=== PATIENT | female | born 1980 | race African-American/Black ===

== ENCOUNTER 2021-03-25 08:32 | Outpatient (CLI) | payer BC | END 2021-03-25 08:33 | disposition home or self-care (01) | LOC: LABBT 08:32 | PROVIDERS: ATTEND Neurological Surgery | DX: Z01.810 Encounter for preprocedural cardiovascular examination (principal); M54.12 Radiculopathy, cervical region | CPT/HCPCS: 93005; 93010 ==

== ENCOUNTER 2021-03-30 05:38 | Day surgery (SDC) | payer BC ==
[2021-03-29 10:24] VITALS: BMI 34.5
[2021-03-30] MEDS ORDERED: Thrombin 5000 UNITS/5 ML VIAL ONE (06:09)
[2021-03-30] MEDS ORDERED: Fentanyl 250 MCG/5 ML VIAL ONE (06:31)
[2021-03-30] MEDS ORDERED: Midazolam HCl 2 mg/2 ml Vial ONE (06:52)
[2021-03-30] MEDS ORDERED: PROPOFOL 200 MG/20 ML VIAL ONE (07:02)
[2021-03-30] MEDS ORDERED: Dexamethasone 20 MG/5 ML VIAL ONE (07:02)
[2021-03-30] MEDS ORDERED: Glycopyrrolate 0.2 MG/ML 5 ML SYRINGE ONE (07:02)
[2021-03-30] MEDS ORDERED: Lidocaine 1% PF 5 ML VIAL ONE (07:02)
[2021-03-30] MEDS ORDERED: Ondansetron PF 4 MG/2 ML Vial ONE ×2 (07:02→13:08)
[2021-03-30] MEDS ORDERED: Rocuronium Bromide 10 MG/ML (10ML VIAL) ONE (07:02)
[2021-03-30] MEDS ORDERED: Fentanyl 100 MCG/2 ML VIAL ONE (09:11)
== END 2021-03-30 13:55 | disposition home or self-care (01) ==
LOC: SDC 05:38
PROVIDERS: ATTEND Neurological Surgery
PROC: 0RG1070 Fusion of Cervical Vertebral Joint with Autologous Tissue Substitute, Anterior Approach, Anterior Column, Open Approach (ICD-10-PCS; principal; 2021-03-30)
PROC: 0RT30ZZ Resection of Cervical Vertebral Disc, Open Approach (ICD-10-PCS; principal; 2021-03-30)
DX: M50.121 Cervical disc disorder at C4-C5 level with radiculopathy (principal); I10 Essential (primary) hypertension; Z79.899 Other long term (current) drug therapy
CPT/HCPCS: 76000; C1713; C1776; J0690; J1100; J2250; J2405; J2704; J3010

== ENCOUNTER 2023-07-27 07:41 | Outpatient (CLI) | payer BC | END 2023-07-27 07:42 | disposition home or self-care (01) | LOC: SCSMRI 07:41 | PROVIDERS: ATTEND Neurological Surgery | DX: M50.121 Cervical disc disorder at C4-C5 level with radiculopathy (principal); M50.122 Cervical disc disorder at C5-C6 level with radiculopathy; M50.123 Cervical disc disorder at C6-C7 level with radiculopathy; M47.22 Other spondylosis with radiculopathy, cervical region; M48.02 Spinal stenosis, cervical region; Z98.890 Other specified postprocedural states; Z98.1 Arthrodesis status | CPT/HCPCS: 72156 ==